=== PATIENT | male | born 1950 | race Caucasian/White ===

== ENCOUNTER 2018-05-02 19:21 | Inpatient (IN) ==
--- NOTE | 2018-05-02 19:45 | Emergency Department Note ---
Disposition Clinical Impression: Melena Anemia Qualifiers: Anemia type: unspecified type Qualified Code(s): D64.9 - Anemia, unspecified Disposition: Admitted As Inpatient Condition: Good [facility] Care Provider[facility] - Forms: ED Satisfaction Letter Time of Disposition: 20:24 General Adult HPI - General Chief complaint: ED GI Bleed Stated complaint: Low hemoglobin Time Seen by Provider: 05/02/18 19:28 Source: patient, EMS Mode of arrival: EMS Limitations: no limitations Nursing Notes Reviewed: Yes Vital Signs Reviewed: Yes - History of Present Illness HPI Narrative: Patient reports a 2 week history of generalized fatigue as well as dizziness whenever he stands up. States that he has also had some dark stools for the past 2 weeks. He does have a history of colonoscopy be that this is been several years since he has had this performed. He denies any gross blood in his stool. He went to the [place] today for routine lab work and was found to have a low hemoglobin he was sent to the emergency department here. Is no shortness of breath but denies any chest pain. He denies any abdominal pain nausea vomiting or diarrhea. He denies any swelling to his extremity. He is pleasant to talk to and does not appear to be in any distress. Patient had a lab workup performed while he was at the [place]. This is included in my note please see the course for this. Patient's lung sounds are clear heart tones are normal. His abdomen is soft wit h a rounded appearance that is not peritoneal. He has no pain to palpation. He denies any urinary symptoms. Pain Scale: 0 - Related Data Allergies Allergy/AdvReac Type Severity Reaction Status Date / Time etodolac Allergy Rash Verified 05/02/18 19:29 All systems ED: reviewed and negative except as stated. Review of Systems: As Per HPI Constitutional: Reports: weakness. Denies: fever, chills Cardiovascular: Denies: chest pain, palpitations, syncope Respiratory: Reports: dyspnea. Denies: cough Gastrointestinal: Reports: melena. Denies: abdominal pain, nausea, vomiting, diarrhea, hematemesis, hematochezia Genitourinary: Denies: urgency, dysuria, frequency Musculoskeletal: Denies: back pain Integumentary: Denies: rash Neurological: Reports: weakness Endocrine: Reports: fatigue Past Medical History - Past Medical History Attestation: Yes The following information was validated with the patient. Source: patient Medical history: Reports: atrial fibrillation, diabetes, hyperlipidemia Psychiatric history: Reports: no psych history - Social History Smoking Status: Never smoker Alcohol use: Reports: none Drug use: Reports: none Physical Exam - General Limitations: no limitations General appearance: alert, in no apparent distress - Head Head exam: atraumatic, normocephalic, normal inspection - Eye Eye exam: Present: normal appearance, PERRL, EOMI - ENT ENT exam: normal exam, normal oropharynx, mucous membranes moist - Neck Neck exam: Present: normal inspection, full ROM, trachea midline - Chest Chest inspection: Present: normal inspection, symmetric chest wall rise. Absent: tenderness - Respiratory Respiratory exam: Present: normal lung sounds bilaterally. Absent: respiratory distress, accessory muscle use - Cardiovascular Cardiovascular exam: Present: regular rate, normal rhythm, normal heart sounds - Abdominal Exam Abdominal exam: Present: soft, Non-Tender, distention (Abdomen is rounded.). Absent: tenderness, guarding, rebound, rigidity, organomegaly, Ring's sign, Rovsing's sign, tenderness at McBurney's Point - Extremities Exam Extremities exam: Present: normal inspection, full ROM, normal capillary refill. Absent: tenderness, pedal edema - Neurological Exam Neurological exam: Present: alert, oriented X3 - Psychiatric Psychiatric exam: Present: normal affect, normal mood - Skin Skin exam: Present: warm, dry, intact, normal color. Absent: rash, cyanosis, diaphoresis Course Course Narrative: Patient is from the [place]. He does have a paper chart accompanying him. He is being sent here for a low hemoglobin. [facility] and was subsequently sent here for a low hemoglobin. States he has never had to have a blood transfusion before. We will order 2 units of blood and admit patient to the hospitalist for this hemoglobin of 5.3. Patient appears to be pale in nature while he is resting in bed. However he is not short of breath. He denies any chest pain. He is mentating appropriately. His abdomen is soft nondistended nontender. Patient's past medical history is significant for atrial fibrillation diabetic retinopathy hyperlipidemia he had an adenomatous polyp of the colon in 2013. He was found to have a heart murmur and had an ejection fraction documented at 55% with mild left ventricular hypertrophy in 2014 as well. He is diagnosed with morbid obesity chronic kidney disease gout male erectile disorder B12 deficiency hypertension hyperlipidemia peripheral neuropathy and type 2 diabetes. Patient's on Xarelto. Patient did have lab work performed at the [place] prior to coming here. He had a urinalysis which showed negative for nitrites and leuk esterase. There is trace protein and no blood. There also no ketones. Patient's AST was 11 ALT was 14. Sodium was 145. Potassium was 4.7. Glucose was 172. Patient's creatinine was 1.55. With a GFR of 47.8. Patient's CBC showed a white blood cell count of 5.6 hemoglobin of 5.8 hematocrit of 18.0 with an MCV of 95.9. This platelet count was 294. Patient's INR was read as 1.3. PT was 13.3. Reticular study was noted to have 7.3%. Iron level of 37 transferrin at 212. TIBC was 277 transferrin saturation was 13% Patient also had a chest x-ray done that has been uploaded to our PACS system. Patient had a fecal occult blood sample that was negative. - Consultations Consultation #1: Dr Pedersen accepted Pt in stable condition. Vital Signs Temperature 97.9 F 05/02/18 19:29 Pulse Rate 64 05/02/18 19:29 Respiratory Rate 16 05/02/18 19:29 Blood Pressure 156/65 05/02/18 19:29 O2 Sat by Pulse Oximetry 99 05/02/18 19:29 Temperature 97.9 F 05/02/18 19:29 Pulse Rate 64 05/02/18 19:29 Respiratory Rate 16 05/02/18 19:29 Blood Pressure 156/65 05/02/18 19:29 O2 Sat by Pulse Oximetry 100 05/02/18 19:29 Oxygen Delivery Oxygen Delivery Nasal Cannula Medical Decision Making - Medical Records Medical records reviewed: Yes I reviewed the patient's medical records. - Radiology Data Radiology results reviewed: Yes I reviewed the patient's radiology results. We did review the chest x-ray from the [place]. This showed no acute process.
[2018-05-02] MEDS ORDERED: Pantoprazole 40 MG VIAL IVP ONE (21:10)
--- NOTE | 2018-05-02 21:44 | Emergency Department Note ---
Disposition Clinical Impression: Melena Anemia Qualifiers: Anemia type: unspecified type Qualified Code(s): D64.9 - Anemia, unspecified Disposition: Admitted As Inpatient Condition: Good General Adult HPI - General Chief complaint: ED GI Bleed Stated complaint: Low hemoglobin Time Seen by Provider: 05/02/18 19:28 Source: patient, EMS Mode of arrival: EMS Limitations: no limitations - History of Present Illness Pain Scale: 0 - Related Data Allergies Allergy/AdvReac Type Severity Reaction Status Date / Time etodolac Allergy Rash Verified 05/02/18 19:29 Constitutional: Reports: weakness. Denies: fever, chills Cardiovascular: Denies: chest pain, palpitations, syncope Respiratory: Reports: dyspnea. Denies: cough Gastrointestinal: Reports: melena. Denies: abdominal pain, nausea, vomiting, diarrhea, hematemesis, hematochezia Genitourinary: Denies: urgency, dysuria, frequency Musculoskeletal: Denies: back pain Integumentary: Denies: rash Neurological: Reports: weakness Endocrine: Reports: fatigue Past Medical History - Past Medical History Medical history: Reports: atrial fibrillation, diabetes, hyperlipidemia Psychiatric history: Reports: no psych history - Social History Smoking Status: Never smoker Alcohol use: Reports: none Drug use: Reports: none Physical Exam - General Limitations: no limitations General appearance: alert, in no apparent distress Course Vital Signs Temperature 97.9 F 05/02/18 19:29 Pulse Rate 64 05/02/18 19:29 Respiratory Rate 16 05/02/18 19:29 Blood Pressure 156/65 05/02/18 19:29 O2 Sat by Pulse Oximetry 99 05/02/18 19:29 Temperature 97.9 F 05/02/18 19:29 Pulse Rate 64 05/02/18 19:29 Respiratory Rate 16 05/02/18 19:29 Blood Pressure 156/65 05/02/18 19:29 O2 Sat by Pulse Oximetry 100 05/02/18 19:29 Oxygen Delivery Oxygen Delivery Nasal Cannula Attestation Statement - Attestation Attestation: I examined this patient and my medical decision-making was reviewed with the Resident Physician. I agree with the documented findings, disposition and treatment plan as described except to the extent set forth below. 67 year old male presents to the ED from an initial workup at the [facility] for low hemoglobin around 5 first time with dark stool and negative fecal hemoccult. Patient will be trasnfused with 2 units and then admittd for continued tranfusion and workup for symptomatic anemia
[2018-05-03] MEDS ORDERED: 0.9 % Sodium Chloride 250 ML ONE ×2 (00:18→03:48)
[2018-05-03 01:29] LABS: Mean Platelet Volume 10.7 fL (9.4-12.4); Red Cell Distribution Width 15.7 % (11.5-14.5)
[2018-05-03 01:31] LABS: Basophils % 0.5 %; Eosinophils # 0.3 K/mcL (0.0-0.6); Eosinophils % 5.1 %; Hematocrit 17.8 % (37.5-50.1); Immature Granulocytes % 0.5 % (0-4); Lymphocytes # 1.5 K/mcL (0.6-4.6); Lymphocytes % 24.4 %; Mean Corpuscular HGB Conc 29.2 g/dL (31.6-35.5); Mean Corpuscular Hemoglobin 29.1 pg (28.0-33.3); Mean Corpuscular Volume 99.4 fL (83.0-100.0); Monocytes # 0.4 K/mcL (0.0-1.3); Monocytes % 6.5 %; Neutrophils # 3.8 K/mcL (1.6-8.9); Nucleated Red Blood Cells 0.3 /100 WBC (0); Platelet Count 269 K/mcL (140-400); Red Blood Count 1.79 M/mcL (4.19-5.50)
[2018-05-03 01:35] LABS: Hemoglobin 5.2 g/dL (12.9-16.9)
[2018-05-03 01:36] LABS: INR 1.7
[2018-05-03 01:38] LABS: Activated Partial Thrombo Time 39.2 Seconds (26.0-36.0)
[2018-05-03 01:52] LABS: Alanine Aminotransferase 8 Units/L (7-52); Albumin 3.3 g/dL (3.5-5.7); Albumin/Globulin Ratio 1.7 (1.1-2.2); Alkaline Phosphatase 51 Units/L (34-104); Aspartate Amino Transferase 9 Units/L (13-39); BUN/Creatinine Ratio 20 (6-26); Bilirubin,Indirect 0.2 mg/dL (0.0-1.2); Bilirubin,Total 0.2 mg/dL (0.3-1.0); Blood Urea Nitrogen 27 mg/dL (8-23); Calcium 8.4 mg/dL (8.6-10.3); Carbon Dioxide 26 mEq/L (23-29); Chloride 112 mEq/L (98-107); Globulin 1.9 g/dL (2.4-3.5); Glucose 247 mg/dL (70-105); Magnesium 1.5 mg/dL (1.6-2.6); Osmolality,Calculated 307 (280-300); Potassium 4.7 mEq/L (3.5-5.1); Sodium 142 mEq/L (136-145); Total Protein 5.2 g/dL (6.4-8.9); eGFR For Non-African Americans 52 (> 60)
[2018-05-03] MEDS ORDERED: Naloxone 0.4 MG/ML INJ IVP PRN ×2 (01:55→18:33)
--- NOTE | 2018-05-03 02:24 | Internal Med History&Physical ---
Date of Encounter: 05/03/18 Time of Encounter: 00:55 Internal Medicine - H&P: HPI Chief complaint: weakness; fatigue; melena Admitted From: Emergency Dept Plans for Post Hospital Care: Home History of present illness: Mr. Kaur is a 67 year old male who presented to the ER from the [place] urgent care. He went to the [place] urgent care earlier yesterday with complaints of fatigue, weakness, and melena for the last 6-7 weeks. He had routine labs performed at the [place] which revealed patient to have profound anemia. He was therefore sent to our ER where he was ordered blood transfusion and admitted to hospitalist service. There were no labs performed in the ER. Furthermore, I cannot find any [place] medical records whatsoever. I reviewed the ER notes and note that he had hemoglobin of 5.8 at the [place] earlier today with a normal MCV. Upon my assessment of the patient, he is quite pale, weak, fatigued, and he confirms the above history. He has been on Xarelto for his atrial fibrillation. He has been having black, tarry stools for over 6 weeks. He denies any gross hematemesis or hematochezia. However, he states his stool/bowel movements have been increasing in frequency and duration lately. He has never had any GI bleeding before that he is aware of. Given his normal MCV and hemoglobin of 5.8, I'm concerned about acute GI hemorrhage rather than chronic blood loss. I ordered stat labs after I saw the patient, especially considering there were no labs drawn in the ER. Despite receiving blood transfusion since his ER admission, his hemoglobin actually dropped to 5.2. His blood pressure and heart rate remain stable. Nonetheless, I am moving him to the intensive care unit for closer monitoring and rapid PRBC transfusion. He will need upper endoscopy later in the morning. If he becomes hemodynamically unstable, however, I will place a central line and start pressors if necessary. I asked his nurse to place a second IV as he only has one IV since his ER admission. Patient denies any NSAID abuse or misuse. He denies any alcohol use. He denies any abdominal pain. He denies any fevers, chills, night sweats, chest pain, or shortness of breath. He does have shortness of breath with heavy exertion, however. Past Med Surg Social Fam HX - Past Medical History Attestation: Yes The following information was validated with the patient. Source: patient, other (ER notes) Medical history: atrial fibrillation, diabetes, hyperlipidemia Psychiatric history: no psych history - Past Surgical History Surgical History: no surgical history - Social History Smoking Status: Never smoker Alcohol use: none Drug use: none Current living situation: Home, With Family Activity Level: Independent ambulation Recent Out of Country Travel Within the Last 8 Weeks: No - Family History Mother Living Status: Hx Family GI Disorders: No Father Living Status: Hx Family GI Disorders: No Internal Medicine - H&P: Meds Allergy/AdvReac Type Severity Reaction Status Date / Time etodolac Allergy Rash Verified 05/02/18 19:29 - Constitutional Constitutional: fatigue, weakness, no chills, no fever(s), no night sweats - EENT Eyes: no blurry vision, no change in vision Ears: no ear pain, no tinnitus Nose, mouth and throat: no nasal congestion, no sinus pain, no sore throat - Cardiovascular Cardiovascular ROS IM: dyspnea on exertion, lightheadedness, no chest pain, no dyspnea, no syncope - Respiratory Respiratory: no cough, no hemoptysis, no chest congestion, no excessive phlegm production, no change in phlegm color - Gastrointestinal Gastrointestinal: change in stool character, heartburn, melena, nausea, no abdominal pain, no coffee ground emesis, no hematemesis, no hematochezia, no vomiting - Genitourinary Genitourinary ROS male: no dysuria, no flank pain, no hematuria - Musculoskeletal Musculoskeletal ROS IM: no arthralgias, no back pain - Integumentary Integumentary IM: no rash, no jaundice - Neurological Neurological ROS: no disequilibrium, no dizziness, no focal weakness, no frequent falls, no headache(s) - Psychiatric Psychiatric: no anxiety, no depression - Endocrine Endocrine IM: no polydipsia, no polyphagia, no polyuria - Allergic/Immunologic Allergic/Immunologic: no wheezing, no GI upset with certain foods - Constitutional Vitals: Temp Pulse Resp BP Pulse Ox 97.7 F 67 16 150/72 99 05/03/18 00:27 05/03/18 00:27 05/03/18 00:27 05/03/18 00:27 05/03/18 00:20 General appearance: Present: cooperative, mild distress, A&O X 3 ( ), pleasant Exam: pale complexion, weak - Head Head exam: Present: atraumatic, normal inspection - Eye Eye exam: Present: EOMI, PERRL. Absent: scleral icterus, conjuntiva pink (pale conuntiva) Pupils: Present: normal accommodation - ENT ENT exam: Present: mucous membranes dry, normal exam, normal oropharynx - Neck Neck exam general surgery: Present: full ROM, supple. Absent: tenderness, nuc richard rigidity, thyromegaly - Respiratory Respiratory exam: Present: CTAB. Absent: chest wall tenderness, rales, respiratory distress, rhonchi, wheezes - Cardiovascular Cardiovascular exam: Present: distant heart sounds, irregular rhythm, +S1, +S2. Absent: diastolic murmur, systolic murmur - GI/Abdominal GI/Abdominal exam: Present: hypoactive bowel sounds, soft. Absent: guarding, hepatomegaly, mass, rebound, splenomegaly, tenderness - Extremities Exam Extremities exam: Present: warm, radial pulses palpable and symmetrical. Absent: calf tenderness, normal capillary refill (delayed at roughly 3-4 seconds), tenderness - Back Exam Back exam: Absent: CVA tenderness (L), CVA tenderness (R) - Neurological Exam Neurological exam: Present: alert, CN II-XII intact, oriented X3, no focal deficits, strengths equal and symetr throughout - Psychiatric Psychiatric exam: Present: normal affect, normal mood - Skin Skin exam: Present: dry, pallor, warm. Absent: normal color, petechiae, rash Internal Med - H&P Results - Labs CBC & Chem 7: 05/03/18 01:04 05/03/18 01:04 Labs: Short CBC 05/03/18 Range/Units 01:04 WBC 6.0 (4.3-11.1) K/mcL Hgb 5.2 L* (12.9-16.9) g/dL Hct 17.8 L (37.5-50.1) % Plt Count 269 (140-400) K/mcL BMP 05/03/18 01:04 Sodium 142 Potassium 4.7 Chloride 112 H Carbon Dioxide 26 BUN 27 H Creatinine 1.37 H Glucose 247 H Calcium 8.4 L Liver Function 05/03/18 Range/Units 01:04 Total Bilirubin 0.2 L (0.3-1.0) mg/dL Direct Bilirubin 0.0 (0.0-0.2) mg/dL AST 9 L (13-39) Units/L ALT 8 (7-52) Units/LReprot Alkaline Phosphatase 51 (34-104) Units/L Albumin 3.3 L (3.5-5.7) g/dL Reported hgb at [facility] was 5.8; repeat now 5.2 during PRBC transfusion - Assessment and plan (1) Acute blood loss anemia Current Visit: Yes Status: Acute Assessment and plan: 1. Will move patient to ICU for closer monitoring and care. 2. Rapid PRBC transfusion x 2 units, then 2 more units per routine transfusion rate. 3. Monitor for hemodynamic instability. 4. I requested a second IV placement. He may need CVC placement. 5. Will monitor serial H/H and coags. (2) UGI bleed Current Visit: Yes Status: Suspected Assessment and plan: 1. Protonix drip ordered. 2. Will keep npo. 3. Consult GI for upper endoscopy. (3) Atrial fibrillation Current Visit: Yes Status: Chronic Assessment and plan: 1. Currently rate-controlled. 2. Medication list not at available; [place] records unable to be found. 3. May need BB or other AV temo blocking agents; however, need to use judiciously in the setting of GI bleed in order to maintain hemodynamic compensation. Qualifiers: Atrial fibrillation type: chronic Qualified Code(s): I48.2 - Chronic atrial fibrillation (4) DVT prophylaxis Current Visit: Yes Status: Acute Assessment and plan: 1. EPCD's.
[2018-05-03] MEDS ORDERED: *HR* Dextrose 50 % in Water (Syg) 50 ML SYRINGE IVP PRN ×2 (02:30→18:33)
[2018-05-03] MEDS ORDERED: Dextrose Gel 15 GM/37.5 ML TUBE PO PRN ×4 (02:30→18:33)
[2018-05-03] MEDS ORDERED: D5% in Water 1,000 ML IVC PRN ×2 (02:30→18:33)
[2018-05-03 02:43] LABS: Hypochromasia Present (Not Present); Macrocytosis Present (Not Present); Polychromasia 1+ (Not Present)
[2018-05-03 02:44] LABS: Anisocytosis 1+ (Not Present); Ovalocytes 1+ (Not Present); Platelet Estimate Normal (Normal); Tear Drop Cells 1+ (Not Present)
[2018-05-03] MEDS: Pantoprazole 40 MG in 0.9 % Sodium Chloride Mini Bag 100 ML IVC SCH ×3 (03:53→16:35)
[2018-05-03 05:48] LABS: Hematocrit 22.1 % (37.5-50.1); Hemoglobin 6.7 g/dL (12.9-16.9)
[2018-05-03 05:55] LABS: INR 1.5; Prothrombin Time 16.5 Seconds (9.4-12.1)
[2018-05-03 05:58] LABS: Activated Partial Thrombo Time 36.9 Seconds (26.0-36.0)
[2018-05-03 06:09] LABS: Alanine Aminotransferase 8 Units/L (7-52); Albumin 3.3 g/dL (3.5-5.7); Albumin/Globulin Ratio 1.7 (1.1-2.2); Alkaline Phosphatase 51 Units/L (34-104); Aspartate Amino Transferase 9 Units/L (13-39); BUN/Creatinine Ratio 20 (6-26); Bilirubin,Total 0.4 mg/dL (0.3-1.0); Blood Urea Nitrogen 24 mg/dL (8-23); Calcium 8.4 mg/dL (8.6-10.3); Carbon Dioxide 26 mEq/L (23-29); Chloride 112 mEq/L (98-107); Globulin 1.9 g/dL (2.4-3.5); Glucose 212 mg/dL (70-105); Osmolality,Calculated 306 (280-300); Potassium 4.8 mEq/L (3.5-5.1); Sodium 143 mEq/L (136-145); Total Protein 5.2 g/dL (6.4-8.9); eGFR For Non-African Americans 59 (> 60)
[2018-05-03] MEDS: Insulin LISPRO 300 UNITS/3 ML VIAL SQ SCH ×4 (06:16→18:20)
[2018-05-03 08:53] LABS: Estimated Average Glucose 120 mg/dl; Hemoglobin A1C 5.8 %
[2018-05-03 11:33] LABS: Hematocrit 26.1 % (37.5-50.1)
--- NOTE | 2018-05-03 11:47 | Gastroenterology Consult Note ---
<SheldonCarroll arellano Amita - Last Filed: 05/03/18 11:44> Date of Encounter: 05/03/18 Time of Encounter: 10:35 - Assessment and plan (1) Melena Current Visit: Yes Status: Acute Assessment and plan: Plan for EGD today to r/o esophagitis, gastritis, duodenitis, PUD, MW tear, or AVM. Keep patient NPO for now. Continue Protonix gtt for now. If EGD negative, plan for colonoscopy tomorrow. (2) Anemia Current Visit: Yes Status: Acute Assessment and plan: On arrival here, Hgb 5.2 with MCV 99.4. He has received 4 units PRBC since admisison. Hgb at 05:37 was 6.7 with INR 1.5. Continue to monitor CBC and transfuse PRBC as needed. Plan for EGD today to r/o esophagitis, gastritis, duodenitis, PUD, MW tear, or AVM. Keep patient NPO for now. If EGD negative, plan for colonoscopy tomorrow. Qualifiers: Anemia type: unspecified type Qualified Code(s): D64.9 - Anemia, unsp ecified - Time Spent With Patient Total time spent is greater than 50% in coordination of care (as documented) at patient's floor/unit and/or counseling patient: GI History of Present Illness - Data of Consult Patient: new to practice Consult date: 05/03/18 Requesting Physician: Rod Rondon - Consult Narrative Reason for consult: UGI bleed History of present illness: Mr. Kaur is a 67 year old male with PMHx of Afib, DM, HLD who presented to the ED from the [place] urgent care with complaints of fatigue, weakness, and melena for the past 6-7 weeks. AT [place] Hgb was 5.8 with normal MCV. On arrival here, Hgb 5.2 with MCV 99.4. He has received 4 units PRBC since admisison, and Hgb at 05:37 was 6.7 with INR 1.5. He was started on Protonix gtt and moved tot he ICU for close monitoring. He denies abdominal pain, nausea, vomiting, chest pain, fever, chills. He denies NSAID use or alcohol use. Procedures: None NSAIDs: None Anticoagulation: Xarelto Past Med Surg Social Fam HX - Past Medical History Medical history: atrial fibrillation, diabetes, hyperlipidemia Psychiatric history: no psych history - Past Surgical History Surgical History: no surgical history - Social History Smoking Status: Never smoker Alcohol use: none Drug use: none - Family History Mother Living Status: Hx Family GI Disorders: No Father Living Status: Hx Family GI Disorders: No - Gastrointestinal Gastrointestinal: Present: as per HPI - Constitutional Constitutional: as per HPI - EENT Eyes: as per HPI Ears: Present: as per HPI Nose, mouth and throat: Present: as per HPI - Cardiovascular Cardiovascular ROS: Present: as per HPI - Respiratory Respiratory IM: Present: as per HPI - Genitourinary Genitourinary: Absent: change in color, Urinary frequency - Neurological ROS Neurological GI: Present: as per HPI - Hematologic/Lymphatic Hematologic/Lymphatic pediatric: Present: as per HPI - Integumentary Integumentary GI: Present: as per HPI - Psychiatric ROS Psychiatric GI: Present: as per HPI - Endocrine Endocrine IM: Present: as per HPI - Constitutional Vitals: Temp Pulse Resp BP Pulse Ox 98.7 F 59 12 170/96 96 05/03/18 09:23 05/03/18 10:00 05/03/18 10:00 05/03/18 10:00 05/03/18 10:03 General appearance: Present: cooperative, A&O X 3, no acute distress, answers questions appropriately - Head Head exam: Present: atraumatic, normocephalic - Eye Eye exam: Present: normal appearance, sclera anicteric - ENT ENT exam: Present: mucous membranes dry - Neck Neck exam general surgery: Present: normal inspection, trachea midline - Respiratory Respiratory exam: Present: decreased breath sounds, CTAB. Absent: rales, rhonchi, wheezes - Cardiovascular Cardiovascular exam: Present: RRR, +S1, +S2 - GI/Abdominal GI/Abdominal exam: Present: soft, no peritoneal signs. Absent: distended, firm, guarding, tenderness - Rectal Rectal exam: Present: deferred - Extremities Exam Extremities exam: Present: warm - Neurological Exam Neurological exam: Present: no focal deficits - Psychiatric Psychiatric exam: Present: normal affect, normal mood - Skin Skin exam: Present: dry, intact, normal color, warm Results - Labs CBC & Chem 7: 05/03/18 05:37 05/03/18 05:37 Labs: Last Result Calcium 8.4 mg/dL (8.6-10.3) L 05/03/18 05:37 Entire Visit Hgb 6.7 g/dL (12.9-16.9) L D 05/03/18 05:37 Hct 22.1 % (37.5-50.1) L 05/03/18 05:37 PT 16.5 Seconds (9.4-12.1) H 05/03/18 05:37 Total Bilirubin 0.4 mg/dL (0.3-1.0) 05/03/18 05:37 AST 9 Units/L (13-39) L 05/03/18 05:37 ALT 8 Units/L (7-52) 05/03/18 05:37 - ABG ABG results: PT/INR, D-dimer PT 16.5 Seconds (9.4-12.1) H 05/03/18 05:37 Consult Discharge Plan - Plan [facility]errals: [facility] [Primary Care Provider[facility] - <Jas Villalobos - Last Filed: 05/03/18 21:38> Date of Encounter: 05/03/18 Time of Encounter: 13:00 - Time Spent With Patient Total time spent is greater than 50% in coordination of care (as documented) at patient's floor/unit and/or counseling patient: GI History of Present Illness - Data of Consult Requesting Physician: Rod Rondon - Consult Narrative History of present illness: Mr. Kaur is a 67 year old male - Constitutional Vitals: Temp Pulse Resp BP Pulse Ox 97.9 F 63 18 162/68 98 05/03/18 16:00 05/03/18 19:00 05/03/18 19:00 05/03/18 19:00 05/03/18 19:00 Results - Labs CBC & Chem 7: 05/03/18 15:59 05/03/18 05:37 Labs: Last Result Calcium 8.4 mg/dL (8.6-10.3) L 05/03/18 05:37 Entire Visit Hgb 8.6 g/dL (12.9-16.9) L 05/03/18 15:59 Hct 27.5 % (37.5-50.1) L 05/03/18 15:59 PT 16.5 Seconds (9.4-12.1) H 05/03/18 05:37 Total Bilirubin 0.4 mg/dL (0.3-1.0) 05/03/18 05:37 AST 9 Units/L (13-39) L 05/03/18 05:37 ALT 8 Units/L (7-52) 05/03/18 05:37 - ABG ABG results: PT/INR, D-dimer PT 16.5 Seconds (9.4-12.1) H 05/03/18 05:37 - Attending Attestation I have personally performed a face to face evaluation on this patient. I have reviewed and agree with the care plan. History and Exam by me shows: Pt seen. Pt with melena. O/E AAO. Abd soft. A: anemia/melena Re: EGD
[2018-05-03 11:49] LABS: Hemoglobin 8.3 g/dL (12.9-16.9)
[2018-05-03] MEDS ORDERED: Magnesium Sulfate 2 GM in D5% in Water 100 ML IVPB ONE ×2 (12:00→18:33)
--- NOTE | 2018-05-03 12:57 | Electrocardiograph Report ---
[address] [address] Test Date: 2018-05-02 Pat Name: Frank Kaur Department: EXAM10 Room: 12 Gender: M Warehouse Technician: : 1950 Requested By: Missy Trevizo Order Number: [id number] Reading MD: Beatrice Rivas Measurements Intervals [place] Rate: 61 P: 76 [place]: 175 QRS: -10 QRSD: 105 T: QT: 416 QTc: 419 Interpretive Statements Sinus rhythm with PACs Borderline T wave abnormalities Electronically Signed On 05-03-2018 12:55:44 EST by Beatrice Rivas
[2018-05-03] MEDS ORDERED: *HR* Midazolam HCl 5 MG/5 ML VIAL IVP ONE ×3 (13:47→13:52)
[2018-05-03] MEDS ORDERED: *HR* FentaNYL (PF) 100 MCG/2 ML VIAL ONE ×2 (13:48→13:51)
[2018-05-03] MEDS ORDERED: *HR* FentaNYL (PF) 100 MCG/2 ML VIAL IVP ONE (13:52)
[2018-05-03] MEDS ORDERED: Tetracaine/Benzocaine/Butamben 1 SPRAY AEROSOL MM ONE (13:52)
[2018-05-03] MEDS ORDERED: Simethicone 40 MG/0.6 ML MLS IR ONE (13:52)
--- NOTE | 2018-05-03 13:52 | Pre-Sedation Evaluation ---
Pre-sedation evaluation - Pre-sedation checklist Date of procedure: 05/03/18 Recent Vitals: Last Vital Signs Temp 97.4 F L 05/03/18 11:00 Pulse 52 05/03/18 11:00 Resp 15 05/03/18 11:00 BP 164/94 05/03/18 11:00 Pulse Ox 91 05/03/18 11:00 ASA Classification *see protocol: CLASS III-Severe systemic disease
[2018-05-03 16:17] LABS: Hematocrit 27.5 % (37.5-50.1); Hemoglobin 8.6 g/dL (12.9-16.9)
[2018-05-03] MEDS ORDERED: SODIUM CHLORIDE/NAHCO3/KCL/PEG 4,000 ML SOLN.RECON PO ONE (17:00)
--- NOTE | 2018-05-03 18:56 | Event Note ---
Date of Encounter: 05/03/18 Time of Encounter: 11:00 Patient seen and evaluated by a nocturnalist earlier this morning and also by myself Patient admitted for acute blood loss anemia with history of melenic stools; blood transfusions given GI consulted for endoscopically today
[2018-05-03 21:56] LABS: Hematocrit 28.1 % (37.5-50.1); Hemoglobin 9.1 g/dL (12.9-16.9)
[2018-05-04] MEDS: Insulin LISPRO 300 UNITS/3 ML VIAL SQ SCH ×4 (01:55→18:43)
[2018-05-04 05:35] LABS: Hematocrit 27.4 % (37.5-50.1); Hemoglobin 8.8 g/dL (12.9-16.9)
[2018-05-04 11:10] LABS: Hematocrit 27.4 % (37.5-50.1); Hemoglobin 8.6 g/dL (12.9-16.9)
[2018-05-04] MEDS: Metoprolol XL (24 HR) Succ 50 MG TAB.ER.24H PO SCH (11:28)
[2018-05-04] MEDS: Furosemide 20 MG TABLET PO SCH (11:28)
[2018-05-04] MEDS: 0.9 % Sodium Chloride 1,000 ML IVC SCH (14:45)
--- NOTE | 2018-05-04 14:46 | Anesthesia Evaluation PreOp ---
Date of Encounter: 05/04/18 Time of Encounter: 14:44 - Past History Planned Operation: Colonoscopy Cardiac History: HTN, Hyperlipidemia, Arrhythmia (H/O A-Fib---on Xarelto, last dose taken 05/02/2018) Pulmonary History: Denies Any Significant HX, Snore SENIOR MARKETING ANALYST History: Denies Any Significant HX Other Medical History: Diabetes Type II Anesthesia History: Past Anesthesia (no prior GA) Alcohol Use: occasionally Drug use: none Medications and Allergies Allopurinol [Zyloprim] 300 mg PO DAILY 05/03/18 [History] Atorvastatin Calcium [Lipitor] 20 mg PO DAILY 05/03/18 [History] Cholecalciferol (D-3) [Vitamin D] 2,000 units PO DAILY 05/03/18 [History] Cyanocobalamin (B-12) [Vitamin B12] 500 mcg PO DAILY 05/03/18 [History] Docusate Sodium [Dok] 200 mg PO TID 05/03/18 [History] Furosemide [Lasix] 20 mg PO DAILY 05/03/18 [History] Insulin Glargine [Lantus] 28 units SQ DAILY 05/03/18 [History] Loratadine [Allergy Relief] 10 mg PO DAILY 05/03/18 [History] Losartan [Cozaar] 25 mg PO DAILY 05/03/18 [History] Metformin HCl [Metformin HCl ER] 1,000 mg PO BID 05/03/18 [History] Metoprolol Succinate [Toprol Xl] 75 mg PO DAILY 05/03/18 [History] [place]-3/Dha/Epa/Fish Oil [Fish Oil 1,000 mg Softgel] 1 each PO BID 05/03/18 [History] Pantoprazole Sodium [Protonix] 40 mg PO BID 05/03/18 [History] Psyllium Husk/Aspartame [Metamucil Powder] 15 gm PO BID 05/03/18 [History] Rivaroxaban [Xarelto] 20 mg PO DAILY 05/03/18 [History] Saliva Stimulant [Biotene Moisturizing Rinse] 1 spray PO AD PRN 05/03/18 [History] Sildenafil Citrate [Viagra] 100 mg PO Q7D PRN 05/03/18 [History] Terazosin [Hytrin] 2 mg PO HS 05/03/18 [History] glipiZIDE [Glipizide] 10 mg PO BID 05/03/18 [History] Allergy/AdvReac Type Severity Reaction Status Date / Time etodolac Allergy Rash Verified 05/02/18 19:29 - Meds/Allergy Pre-op Review Medications Reviewed: Yes Allergies Reviewed: Yes Beta Blockers on Current Med List: Yes If Beta Blockers taken, Date/Time (Last Dose taken): 05/04/2018 at 1128 Anesthesia Results - Labs 05/04/18 10:26 05/03/18 05:37 - Imaging EKG: report reviewed (05/02/2018 Sinus rhythm with PACs Borderline T wave abnormalities) Anesthesia Exam Vital Signs/O2 Sat/Glucose, Most Recent Temp Pulse Resp BP Pulse Ox 98.0 F 58 16 172/64 97 05/04/18 14:40 05/04/18 14:40 05/04/18 14:40 05/04/18 14:40 05/04/18 14:40 Blood Glucose* 187 Height: 6'1'' Weight: 303 lbs NPO (# of Hours): 8 Pain Scale: 0 Pain Scale Used: Numeric (1 - 10) - HEENT Pupil (Motor): EOMI Mallampati: III Teeth: Normal, Missing Oral Opening: Greater than 3 - SENIOR MARKETING ANALYST LOC: Oriented SENIOR MARKETING ANALYST Motor: Normal RUE, Normal LUE, Normal RLE, Normal LLE, Normal Face SENIOR MARKETING ANALYST Sensory: Normal: RUE, LUE, Face, Deficit: RLE, LLE - Cardiac Rhythm: Regular Murmur: None - Pulmonary Breath Sounds: bilateral Clear Respiratory Effort: Symmetrical Anesthesia Assess/Plan ASA Score: 3 Level of consciousness: Cooperative, Oriented, Tranquil Anesthetic Plan: MAC Monitoring Plan: Standard Monitors
[2018-05-04] MEDS ORDERED: Propofol 500 MG/50 ML INFUS..BTL ONE (15:21)
[2018-05-04] MEDS ORDERED: Lidocaine -MPF 2% 2 ML VIAL ONE (15:21)
--- NOTE | 2018-05-04 15:27 | Anesthesia Evaluation Post Op ---
Date of Encounter: 05/04/18 Time of Encounter: 15:25 - Vital Signs Vital Signs: Vital Signs Temperature 97.9 F 05/02/18 19:29 Pulse Rate 64 05/02/18 19:29 Respiratory Rate 16 05/02/18 19:29 Blood Pressure 156/65 05/02/18 19:29 O2 Sat by Pulse Oximetry 99 05/02/18 19:29 Temperature 98.0 F 05/04/18 14:40 Pulse Rate 58 05/04/18 14:40 Respiratory Rate 16 05/04/18 14:40 Blood Pressure 172/64 05/04/18 14:40 O2 Sat by Pulse Oximetry 97 05/04/18 14:40 Oxygen Delivery Oxygen Delivery Nasal Cannula - Lungs Lungs: Clear Ascult./Percussion - Airway Airway: Non-obstructed - Cardiovascular Regular Rate - Mental Status Mental Status: Alert & Oriented, Answers Appropriately - Pain Pain Scale: 0 Pain Scale used: Numeric (1 - 10) - Nausea Vomiting Nausea Vomiting: Not Present - Discharge PostOp Status: Transfer Patient to floor
[2018-05-04 16:05] LABS: Hematocrit 29.2 % (37.5-50.1); Hemoglobin 9.2 g/dL (12.9-16.9)
--- NOTE | 2018-05-04 19:15 | Internal Med Progress Note ---
Hospitalist Progress Note - Encounter Date of Encounter: 05/04/18 Time of Encounter: 11:00 - Subjective Interval History: Patient going for colonoscopy today for evaluation of a suspicion of GI bleed - Exam Vitals: Temp Pulse Resp BP Pulse Ox 97.8 F 62 18 154/78 97 05/04/18 16:00 05/04/18 16:15 05/04/18 16:15 05/04/18 16:15 05/04/18 16:15 Exam: Gen.: Nonacute distress, alert and oriented 3 ENT: Mucosal membranes moist Respiratory: Lungs are clear to auscultation bilaterally without any wheezing rhonchi or rales Cardiovascular: Normal S1 and S2 regular rate rhythm no murmurs rubs or gallops Abdomen: Soft, nontender and nondistended with positive bowel sounds Extremities: No lower extremity edema Skin: Normal color - Assessment and Plan (1) Acute blood loss anemia Current Visit: Yes Status: Acute Assessment and Plan: Evaluation for suspicion of GI bleed with colonoscopy today In the global and remained stable status post post 4 units of packed red blood cells (2) UGI bleed Current Visit: Yes Status: Suspected Assessment and Plan: GI with recommendations for colonoscopy today (3) Atrial fibrillation Current Visit: Yes Status: Chronic Assessment and Plan: Patient with a CHADS VASC 3 Will await results of colonoscopy and consideration of restarting Xarelto (4) DVT prophylaxis Current Visit: Yes Status: Acute Assessment and Plan: EPCD's. - Time Spent with Patient Total time spent is greater than 50% in coordination of care (as documented) at patient's floor/unit and/or counseling patient: Internal Medicine: Result - Labs CBC & Chem 7: 05/04/18 15:50 05/03/18 05:37 Labs: Short CBC 05/03/18 05/04/18 05/04/18 Range/Units 21:34 05:22 10:26 Hgb 9.1 L 8.8 L 8.6 L (12.9-16.9) g/dL Hct 28.1 L 27.4 L 27.4 L (37.5-50.1) % 05/04/18 Range/Units 15:50 Hgb 9.2 L (12.9-16.9) g/dL Hct 29.2 L (37.5-50.1) % - ABG Interpretation ABG results: PT/INR, D-dimer PT 16.5 Seconds (9.4-12.1) H 05/03/18 05:37 - VTE Documentation of Mechanical Device: Intermittent pneumatic compression device Consult Discharge Plan - Plan [facility]errals: [facility] [Primary Care Provider] - (3) Atrial fibrillation Qualifiers: Atrial fibrillation type: chronic Qualified Code(s): I48.2 - Chronic atrial fibrillation
[2018-05-04] MEDS ORDERED: Insulin LISPRO 300 UNITS/3 ML VIAL SQ SCH (21:00)
[2018-05-04 21:52] LABS: Hematocrit 29.1 % (37.5-50.1); Hemoglobin 9.2 g/dL (12.9-16.9)
[2018-05-05 07:46] VITALS: BP 148/64
[2018-05-05] MEDS: Insulin LISPRO 300 UNITS/3 ML VIAL SQ SCH ×2 (08:48→13:11)
[2018-05-05] MEDS: Metoprolol XL (24 HR) Succ 50 MG TAB.ER.24H PO SCH (08:51)
[2018-05-05] MEDS: Furosemide 20 MG TABLET PO SCH (08:51)
[2018-05-05 10:39] LABS: Basophils % 0.6 %; Eosinophils # 0.3 K/mcL (0.0-0.6); Eosinophils % 3.9 %; Hematocrit 29.8 % (37.5-50.1); Hemoglobin 9.4 g/dL (12.9-16.9); Immature Granulocytes % 0.3 % (0-4); Lymphocytes # 0.9 K/mcL (0.6-4.6); Lymphocytes % 13.4 %; Mean Corpuscular HGB Conc 31.5 g/dL (31.6-35.5); Mean Corpuscular Hemoglobin 28.9 pg (28.0-33.3); Mean Corpuscular Volume 91.7 fL (83.0-100.0); Mean Platelet Volume 10.5 fL (9.4-12.4); Monocytes # 0.7 K/mcL (0.0-1.3); Monocytes % 9.5 %; Platelet Count 273 K/mcL (140-400); Red Blood Count 3.25 M/mcL (4.19-5.50); Red Cell Distribution Width 15.4 % (11.5-14.5); Segmented Neutrophils % 72.3 %
[2018-05-05 10:58] LABS: BUN/Creatinine Ratio 10 (6-26); Blood Urea Nitrogen 13 mg/dL (8-23); Calcium 8.7 mg/dL (8.6-10.3); Carbon Dioxide 25 mEq/L (23-29); Chloride 106 mEq/L (98-107); Glucose 256 mg/dL (70-105); Osmolality,Calculated 297 (280-300); Potassium 4.5 mEq/L (3.5-5.1); Sodium 139 mEq/L (136-145); eGFR For Non-African Americans 56 (> 60)
[2018-05-05] MEDS: 0.9 % Sodium Chloride 1,000 ML IVC SCH (11:42)
--- NOTE | 2018-05-05 14:23 | Discharge Summary ---
Orders not resulted at time of discharge: Pending orders 05/02/18 23:08 Type and Screen [BBK] Stat 05/03/18 01:55 ECG 12 lead ECG [ECG] Routine 05/03/18 02:02 Red Blood Cells [BBK] Stat 05/04/18 15:24 Surgical Pathology [PTH] Routine Date of Encounter: 05/06/18 Time of Encounter: 11:00 - Discharge Diagnosis (1) Acute blood loss anemia Priority: Primary Status: Acute (2) UGI bleed Priority: Primary Status: Suspected (3) Atrial fibrillation Priority: Secondary Status: Chronic Qualifiers: Atrial fibrillation type: chronic Qualified Code(s): I48.2 - Chronic atrial fibrillation Hospital course: Patient is a 67-year-old male with past medical history significant for atrial fibrillation on Xarelto, diabetes and hyperlipidemia who presented from the [place] urgent care due to complaints of fatigue, weakness and melena. During patients hospital stay he was transfused a total of 4 units of packed red blood cells his hemoglobin remained stable. GI was consulted with recommendations for colonoscopy which revealed diverticulosis and a 2 mm nonbleeding polyp in the ascending colon and addition to internal hemorrhoids. Recommendations per GI for patient to have a capsule endoscopy as an outpatient. Risk and benefits were reviewed with patient for oral anticoagulation with atrial fibrillation and benefits of CVA prevention with oral anticoagulation outweighed risk of GI bleed therefore patient will be discharged on Eliquis and to follow-up with primary care provider to monitor hemoglobin. - Time Spent with Patient Total time spent providing and/or coordinating discharge services: Less than 30 minutes - Discharge Medications Prescriptions: Apixaban [Eliquis] 5 mg PO BID #60 tablet Home Medications: Allopurinol [Zyloprim] 300 mg PO DAILY 05/03/18 [History] Atorvastatin Calcium [Lipitor] 20 mg PO DAILY 05/03/18 [History] Cholecalciferol (D-3) [Vitamin D] 2,000 units PO DAILY 05/03/18 [History] Cyanocobalamin (B-12) [Vitamin B12] 500 mcg PO DAILY 05/03/18 [History] Docusate Sodium [Dok] 200 mg PO TID 05/03/18 [History] Furosemide [Lasix] 20 mg PO DAILY 05/03/18 [History] Insulin Glargine [Lantus] 28 units SQ DAILY 05/03/18 [History] Loratadine [Allergy Relief] 10 mg PO DAILY 05/03/18 [History] Losartan [Cozaar] 25 mg PO DAILY 05/03/18 [History] Metformin HCl [Metformin HCl ER] 1,000 mg PO BID 05/03/18 [History] Metoprolol Succinate [Toprol Xl] 75 mg PO DAILY 05/03/18 [History] [place]-3/Dha/Epa/Fish Oil [Fish Oil 1,000 mg Softgel] 1 each PO BID 05/03/18 [History] Pantoprazole Sodium [Protonix] 40 mg PO BID 05/03/18 [History] Psyllium Husk/Aspartame [Metamucil Powder] 15 gm PO BID 05/03/18 [History] Saliva Stimulant [Biotene Moisturizing Rinse] 1 spray PO AD PRN 05/03/18 [History] Sildenafil Citrate [Viagra] 100 mg PO Q7D PRN 05/03/18 [History] Terazosin [Hytrin] 2 mg PO HS 05/03/18 [History] glipiZIDE [Glipizide] 10 mg PO BID 05/03/18 [History] Apixaban [Eliquis] 5 mg PO BID #60 tablet 05/05/18 [Rx] Allergies/Adverse Reactions: Allergy/AdvReac Type Severity Reaction Status Date / Time etodolac Allergy Rash Verified 05/02/18 19:29 Date of admission: 05/03/18 02:21 [facility] care physician: [facility] Consults: 05/03/18 02:00 Consult to Physician [CONS] Routine Consulting Provider: Jas Villalobos Reason for Consult: UGI bleed Call Completed: No - Constitutional Vitals: Temp Pulse Resp BP Pulse Ox 97.1 F L 61 12 148/64 96 05/05/18 07:42 05/05/18 07:42 05/05/18 07:42 05/05/18 07:42 05/05/18 09:01 General appearance: Present: cooperative, mild distress, A&O X 3 ( ), pleasant Exam: Gen.: Nonacute distress, alert and oriented 3 Skin: Normal color - Patient Status Disposition: Home, Self-Care Condition: Good - Discharge Instructions Instructions: Apixaban (By mouth), Atrial Fibrillation (DC), Anemia (GEN) [facility] With: [facility] [Primary Care Provider[facility] - Jas Villalobos MD [Partnered Physician] - ( office will contact you regarding your capsule endoscopy. ) - VTE Documentation of Mechanical Device: Intermittent pneumatic compression device
== END 2018-05-05 15:58 | disposition home or self-care (01) | DRG 378 ==
LOC: 3BNU 19:21 → EMEROOARM 19:21 → 3BNU 22:11 → SUATTDRO 05-03 02:21 → 2NENU 05-03 20:33
PROVIDERS: ADMIT Internal Medicine; ATTEND Hospitalist
PROC: ENDOCBX (2018-05-04 18:00)